=== PATIENT | male | born 1955 | race Two or more races ===

== ENCOUNTER → 2017-06-04 | Outpatient (CLI) | payer MEDICARE, MEDICAID ==
[~2017-06-04] MED LIST: REGADENOSON 0.4 MG/5 ML IV ONE
== END | disposition home or self-care (01) ==
LOC: NM 06:29
PROVIDERS: ATTEND Internal Medicine Cardiovascular Disease
DX: R07.9 Chest pain, unspecified (principal); I25.2 Old myocardial infarction; I10 Essential (primary) hypertension
CPT/HCPCS: 78452; 93017; A9500; J2785

== ENCOUNTER 2022-08-09 22:22 | Emergency (ER) | payer MEDICARE, MEDICAID ==
[~2022-08-09] VITALS: Ht 180.3 cm; Wt 98.0 kg
[~2022-08-09 22:22] MED LIST changes: +AMLO2.5T45 PO; +CARV25TA47 PO; +CLOP75TA33 PO; +FELO5TAB46 PO; +FINA5TAB11 PO; +GABA-529 PO; +HYDR-4009 PO; +INSU100I24 SQ; +LACT10SO6 PO; +METF-416 PO; -REGADENOSON 0.4 MG/5 ML IV ONE; +ROSU20TA2 PO; +TAMS-11 PO; +TIZA2CAP7 PO; +TRAZ150T78 PO
[2022-08-09 22:45] VITALS: BP 120/72
[2022-08-09 23:18] LABS: CHLORIDE 109 mEq/L (98-107)
[2022-08-09 23:29] LABS: BASOPHILS % 0.8 % (0.0-2.0); EOSINOPHILS % 2.9 % (0.0-5.0); HEMATOCRIT. 34.1 % (42.0-52.0); HEMOGLOBIN. 11.6 g/dL (14.0-18.0); MEAN CORPUSCULAR HEMOGLOBIN 32.1 pg (28.0-32.0); MEAN CORPUSCULAR VOLUME 94.3 fL (80.0-94.0); MONOCYTES % 8.3 % (2.0-8.0); PLATELET 201 x1000/uL (130-400); RED BLOOD CELL COUNT 3.61 mill/uL (4.7-6.1); RED CELL DISTRIBUTION WIDTH 13.5 % (11.6-14.6)
[2022-08-10] MEDS ORDERED: TETANUS, DIPHTHERIA, PERTUSSIS VAC/PF 0.5ML (>10YR OLD) IM ONE (01:15)
[2022-08-10] MEDS ORDERED: BACITRACIN ZINC OINT UDPKT TOP ONE (01:15)
== END 2022-08-10 02:09 | disposition home or self-care (01) ==
LOC: ER 22:22
DX: S00.81XA Abrasion of other part of head, initial encounter (principal); R55 Syncope and collapse; I10 Essential (primary) hypertension; W01.0XXA Fall on same level from slipping, tripping and stumbling without subsequent striking against object, initial encounter; Y93.89 Activity, other specified; Y92.018 Other place in single-family (private) house as the place of occurrence of the external cause
CPT/HCPCS: 36415; 71045; 80053; 84484; 85025; 90715; 93005; 99291

== ENCOUNTER 2023-12-01 13:49 | Emergency (ER) | payer MEDICARE, MEDICAID ==
[~2023-12-01] VITALS: Ht 177.8 cm; Wt 85.0 kg
[2023-12-01 14:07] VITALS: O2SAT 99
[2023-12-01 14:39] LABS: BASOPHILS % 0.9 % (0.0-2.0); EOSINOPHILS % 2.4 % (0.0-5.0); HEMATOCRIT. 34.8 % (42.0-52.0); HEMOGLOBIN. 11.9 g/dL (14.0-18.0); LYMPHOCYTES % 19.6 % (20.0-50.0); MEAN CORPUSCULAR HEMOGLOBIN 32.9 pg (28.0-32.0); MEAN CORPUSCULAR HGB CONC 34.3 g/dL (31.0-37.0); MEAN CORPUSCULAR VOLUME 96.1 fL (80.0-94.0); MEAN PLATELET VOLUME 7.7 fl (7.4-10.4); MONOCYTES % 10.7 % (2.0-8.0); NEUTROPHILS % 66.4 % (40.0-76.0); PLATELET 239 x1000/uL (130-400); RED BLOOD CELL COUNT 3.62 mill/uL (4.7-6.1); RED CELL DISTRIBUTION WIDTH 13.3 % (11.6-14.6); WHITE BLOOD COUNT 6.4 x1000/uL (4.5-11.0)
[2023-12-01 14:43] LABS: POTASSIUM 4.5 mEq/L (3.5-5.1)
[2023-12-01 14:45] LABS: CALCIUM 10.4 mg/dL (8.7-10.4)
[2023-12-01 14:49] LABS: CREATININE 1.7 mg/dL (0.6-1.3)
[2023-12-01 16:13] LABS: CLARITY URINE CLEAR (CLEAR); COLOR URINE DARK YELLOW (YELLOW); GLUCOSE URINE NEGATIVE (NEGATIVE); KETONES URINE TRACE (NEGATIVE); LEUKOCYTE ESTERASE URINE 1+ (NEGATIVE); NITRITE URINE NEGATIVE (NEGATIVE); OCCULT BLOOD URINE 3+ (NEGATIVE); PROTEIN URINE TRACE (NEGATIVE); SPECIFIC GRAVITY URINE 1.024 (1.005-1.030); UROBILINOGEN URINE 0.2 E.U./dL (0.2-1.0)
[2023-12-01 16:58] LABS: BACTERIA URINE 1+; RBC URINE 25-50 /hpf (0-2); SQUAMOUS EPITHELIAL CELL URINE FEW /lpf (RARE/1+)
[2023-12-01] MEDS ORDERED: CEFU500T41 MT (17:11)
[2023-12-01 17:58] VITALS: BP 120/71; PULSE 71; RESP 18; TEMP 98.5
== END 2023-12-01 18:33 | disposition home or self-care (01) ==
LOC: ER 14:21
DX: N39.0 Urinary tract infection, site not specified (principal); R31.9 Hematuria, unspecified; E11.9 Type 2 diabetes mellitus without complications; Z86.73 Personal history of transient ischemic attack (TIA), and cerebral infarction without residual deficits; Z98.890 Other specified postprocedural states; Z85.46 Personal history of malignant neoplasm of prostate
CPT/HCPCS: 36415; 80048; 81003; 85025; 99283